=== PATIENT | female | born 1935 | race Two or more races ===

== ENCOUNTER → 2017-07-24 | Outpatient (CLI) | payer OTHER | LOC: CIMAGING 13:14 | PROVIDERS: ATTEND Internal Medicine | DX: M25.551 Pain in right hip (principal); M51.36 Other intervertebral disc degeneration, lumbar region; M51.35 Other intervertebral disc degeneration, thoracolumbar region | CPT/HCPCS: 72100-PO; 73502-PO ==

== ENCOUNTER → 2018-01-11 | Outpatient (CLI) | payer OTHER | LOC: FIMAGING 18:56 | PROVIDERS: ATTEND Internal Medicine | DX: M51.35 Other intervertebral disc degeneration, thoracolumbar region (principal); M51.36 Other intervertebral disc degeneration, lumbar region; M48.061 Spinal stenosis, lumbar region without neurogenic claudication; Q76.6 Other congenital malformations of ribs ==

== ENCOUNTER → 2018-08-29 | Outpatient (CLI) | payer OTHER | LOC: BHFA 11:00 | PROVIDERS: ATTEND Internal Medicine Cardiovascular Disease | DX: R07.9 Chest pain, unspecified (principal); R94.31 Abnormal electrocardiogram [ECG] [EKG]; R94.39 Abnormal result of other cardiovascular function study ==

== ENCOUNTER → 2018-09-06 | Outpatient (CLI) | payer OTHER | LOC: BHFA 13:00 | PROVIDERS: ATTEND Internal Medicine Cardiovascular Disease | DX: R94.39 Abnormal result of other cardiovascular function study (principal) | CPT/HCPCS: 78452; 93017; A9500; J2785 ==

== ENCOUNTER 2018-10-03 10:36 | Inpatient (IN) | payer OTHER ==
[2018-10-03] MEDS ORDERED: FAMOTIDINE 20 MG TAB PO ONE (10:37)
[2018-10-03] MEDS ORDERED: ASPIRIN EC 325 MG TAB PO ONE ×2 (10:37→12:46)
[2018-10-03] MEDS ORDERED: DIAZEPAM 5 MG TAB PO ONE (10:37)
[2018-10-03] MEDS ORDERED: NS 1,000 ML IV ONE (10:37)
[2018-10-03] MEDS ORDERED: diphenhydrAMINE 25 MG CAP PO ONE ×2 (10:37→12:46)
[2018-10-03] MEDS ORDERED: LIDOCAINE 1% 300 MG/30 ML SDV ONE (10:52)
[2018-10-03] MEDS ORDERED: MIDAZOLAM 2 MG/2 ML VIAL ONE ×2 (10:52)
[2018-10-03] MEDS ORDERED: fentaNYL 100 MCG/2 ML INJ ONE (10:52)
[2018-10-03] MEDS ORDERED: IOHEXOL 350mgI/ML (OMNIPAQUE) 150 ML BTL IV ONE ×2 (10:53)
--- NOTE | 2018-10-03 11:09 | PDPROPOC ---
Sedation Plan of Care Sedation Plan of Care: mental status noted, patient educated of risks, benefits , alternatives, patient can tolerate sedation ASA Classification: ASA 2 Planned drugs: fentanyl, midazolam Mallampati Score: Class 2 Mallampati Reference Image: Patient passed 3-3-2 rule?: Yes
--- NOTE | 2018-10-03 11:14 | PDHPUP ---
History & Physical Update H&P update statement: This history and physical update is based on an assessment of the patient which was completed after admission or registration (within 24 hours), but prior to the surgery/procedure.Ana M is pleasant 83F with complaints of exertional chest pain, epigastric discomfort with radiation to her back coupled with sob and torres. She could not complete Jermaine protocol, excercising for 3 min and 20 seconds , stopped due to fatigue. Lexiscan nuclear stress demonstrated a large, severe intensiity fixed with partial reversibility Anterior septal defect c/w infarct with isa infarct ischemia, TID and reduced EF of 46%. She presents today for [facility]. Her daughter serves as a clay dry press mixer operator. I have asked if she would like an spanish interpreter/translator. She said no and was comfortable with my explanations via her daughter. H&P update: H&P reviewed & patient examined, no change in patient's condition since H&P completed
[2018-10-03 11:24] LABS: PLATELET COUNT 168 10^3/uL (150-400)
[2018-10-03 11:33] LABS: INR 1.01 (0.83-1.16); PROTIME(PATIENT) 13.5 SEC (12.0-15.0)
--- NOTE | 2018-10-03 11:45 | CPEKG ---
Test Reason : OPEN Blood Pressure : / mmHG Vent. Rate : 078 BPM Atrial Rate : 079 BPM P-R Int : 254 ms QRS Dur : 093 ms QT Int : 398 ms P-R-T Axes : 063 012 107 degrees QTc Int : 454 ms Sinus rhythm Prolonged CT interval Probable LVH with secondary repol abnrm Confirmed by Giovany Manuel ([id number]) on 10/03/2018 11:44:25 AM Referred By: Franky Pantoja Confirmed By:Giovany Manuel
[2018-10-03] MEDS ORDERED: FAMOTIDINE 20 MG TAB ONE (12:46)
[2018-10-03] MEDS ORDERED: DIAZEPAM 5 MG TAB ONE (12:47)
[2018-10-03] MEDS ORDERED: hydrALAZINE 20 MG/ML VIAL ONE (13:18)
[2018-10-03] MEDS ORDERED: ATROPINE SULFATE 1 MG/10 ML SYR IVP PRN (13:56)
[2018-10-03] MEDS ORDERED: NITROGLYCERIN 0.4 MG BTL SL PRN (13:56)
[2018-10-03] MEDS ORDERED: OXYCODONE/APAP 5/325 TAB PO PRN (13:56)
[2018-10-04 04:37] LABS: PLATELET COUNT 157 10^3/uL (150-400)
[2018-10-04] MEDS: ATORVASTATIN CALCIUM 20 MG TAB PO SCH (09:29)
[2018-10-04] MEDS: METOPROLOL SUCCINATE XR 50 MG TAB PO SCH (09:29)
[2018-10-04] MEDS: GABAPENTIN 100 MG CAP PO SCH (09:29)
--- NOTE | 2018-10-04 10:08 | PDCARPN ---
Cardiology Progress Note Chief Complaint: CP Assessment/Plan: Assessment: CP 3-vessel CAD by cath on 10/03 Plan: 10/04/18 10:[address] Gannon to see patient today Continue medical therapy Subjective: stable Reviewed/Discussed With: multidisciplinary team Time Spent with Patient: greater than 25 minutes Time Spent with Patient: Greater than 25 minutes spent on this patients care, greater than 50% of time spent counseling, educating, and coordinating care regarding the above mentioned plan. Objective: Vital Signs (8 Hrs) Temp Pulse Pulse Pulse Pulse Resp BP 10/04/18 09:29 73 188/97 H 10/04/18 07:15 36.5 C 64 15 161/82 H 10/04/18 06:00 63 64 64 BP BP BP Pulse Ox 10/04/18 09:29 10/04/18 07:15 90 L 10/04/18 06:00 164/91 H 143/80 H 170/83 H Intake/Output (24 Hrs) 10/03/18 10/04/18 10/05/18 05:59 05:59 05:59 Intake Total 250 Balance 250 Intake: Oral (ml) 250 Other: Weight 64.41 kg 63.957 kg Number of Voids Toilet 2 Result Diagrams: 10/04/18 04:00 10/04/18 04:00 - Physical Exam Constitutional: no apparent distress Eyes: PERRL Ears, Nose, Mouth, Throat: moist mucous membranes Cardiovascular: regular rate and rhythm Peripheral Pulses: 1+: femoral (R), femoral (L) Respiratory: clear to auscultate bilat Gastrointestinal: normoactive bowel sounds Genitourinary: no suprapubic tenderness Skin: no rashes Musculoskeletal: no muscular tenderness Neurologic: AAOx3 Psychiatric: cooperative ICD10 Worksheet Patient Problems: Problems Problem Status Onset CAD (coronary artery disease) Acute - ICD10 Problem Qualifiers (1) CAD (coronary artery disease) Qualifiers: Coronary Disease-Associated Artery/Lesion type: [place] artery [place] vs. transplanted heart: [place] heart Associated angina: with stable angina Qualified Code(s): I25.118 - Atherosclerotic heart disease of [place] coronary artery with other forms of angina pectoris
[2018-10-04] MEDS ORDERED: hydrALAZINE 20 MG/ML VIAL IVP PRN (10:09)
--- NOTE | 2018-10-04 10:59 | PDMN ---
Medical Necessity Medical necessity: Pt meets IP criteria as of 10/03/2018 per and MCG M-40 ( Angina); est los > 2 mn for ongoing tx and management of exertional CP, KOTHARI, and epigastric discomfort. Nuclear stress test demonstrated ischemia and pt had L heart cath, plan for CABG.
--- NOTE | 2018-10-04 14:19 | ASMTCMCOM ---
CM Note CM Note Notes: 10/04/2018 Case Management Note Pt admitted for CAD, considering CABG. Met w/pt, daughter Sofie Conte [phone] and granddaughter Alexandra [phone]. Pt is polishing speaking only, used chick room supervisor services provided by [facility]. Used interpreting ipad for discussion. Pt lives with her daughter Sofie. She has not in the past used any home care services are staying in a SNF rehab. There are no therapy evals ordered at this time. Pt PCP is Dr. Jose Middleton in [place]. Case Management d/c poc: to be determined. Case management to follow. Date Signed: 10/04/2018 02:18 PM Electronically Signed By:Laura Deleon RN
[2018-10-04] MEDS ORDERED: IOHEXOL 300 mgI/ML (OMNIPAQUE) 150 ML BTL IV ONE (17:10)
--- NOTE | 2018-10-04 20:01 | CPEKG ---
Test Reason : OPEN Blood Pressure : / mmHG Vent. Rate : 067 BPM Atrial Rate : 066 BPM P-R Int : 222 ms QRS Dur : 091 ms QT Int : 428 ms P-R-T Axes : 040 007 102 degrees QTc Int : 452 ms Sinus rhythm Prolonged IL interval Left atrial enlargement LVH with secondary repolarization abnormality Confirmed by Giovany Manuel ([id number]) on 10/04/2018 8:00:40 PM Referred By: Franky Pantoja Confirmed By:Giovany Manuel
[2018-10-04] MEDS ORDERED: CHLORHEXIDINE GLUC HIBICLENS 118 ML BTL TP SCH (21:00)
[2018-10-05] MEDS ORDERED: NS 1,000 ML IV ONE (06:00)
[2018-10-05] MEDS ORDERED: INSULIN REGULAR HUMAN 100 UNIT in NS 100 ML IV ONE (06:00)
[2018-10-05] MEDS ORDERED: PHENYLEPHRINE HCL 50 MG in NS 250 ML IV ONE (06:00)
[2018-10-05] MEDS ORDERED: ceFAZolin 2 GM/DEXTROSE 100 ML IV ONE (06:00)
[2018-10-05] MEDS ORDERED: CARDIOPLEGIC SOLUTION 1,052.8 ML PF ONE (06:00)
[2018-10-05] MEDS ORDERED: CITRATE DEXTROSE SOLN 500 ML BAG MISC ONE (06:00)
[2018-10-05] MEDS ORDERED: MUPIROCIN 2% 22 GM OINT NS ONE (06:00)
[2018-10-05] MEDS ORDERED: LIDOCAINE 1% 2 ML INJ ID PRN (06:00)
[2018-10-05] MEDS ORDERED: niCARdipine/NACL 200 ML IV ONE (06:00)
[2018-10-05] MEDS ORDERED: NOREPINEPHRINE BITARTRATE 16 MG in NS 250 ML IV ONE (06:00)
[2018-10-05] MEDS ORDERED: VERAPAMIL 5 MG, NITROGLYCERIN 2.5 MG, HEPARIN 500 UNIT, SODIUM BICARBONATE 0.2 MEQ in L... MISC ONE (06:00)
[2018-10-05] MEDS ORDERED: MANNITOL 25% 12.5 GM/50 ML VIAL IVP ONE (06:00)
[2018-10-05] MEDS ORDERED: AMINOCAPROIC ACID 5 GM/20 ML VIAL IV ONE (06:00)
[2018-10-05] MEDS ORDERED: PAPAVERINE HCL 60 MG in NS 100 ML IV ONE (06:00)
[2018-10-05] MEDS ORDERED: AMINOCAPROIC ACID 5 GM/20 ML VIAL ONE ×2 (06:30→06:32)
[2018-10-05] MEDS ORDERED: NA BICARBONATE 50 MEQ/50 ML VIAL ONE (06:30)
[2018-10-05] MEDS ORDERED: PROTAMINE SULFATE 50 MG/5 ML VIAL IVP ONE (06:30)
[2018-10-05] MEDS ORDERED: MILRINONE/DEXTROSE/100 ML BAG IV ONE (06:30)
[2018-10-05] MEDS ORDERED: CALCIUM CHLORIDE 1 GM/10 ML INJ ONE ×2 (06:30→06:32)
[2018-10-05] MEDS ORDERED: AMIODARONE HCL 150 MG/3 ML VIAL ONE ×2 (06:31→06:32)
[2018-10-05] MEDS ORDERED: DOPamine/DEXTROSE 400 MG/250 ML BAG IV ONE (06:31)
[2018-10-05] MEDS ORDERED: SODIUM BICARBONATE 50 MEQ/50 ML SYR ONE (06:31)
[2018-10-05] MEDS ORDERED: ADENOSINE 6 MG/2 ML VIAL ONE (06:31)
[2018-10-05] MEDS ORDERED: HEPARIN 10,000 UNIT/10 ML MDV (1,000 UNIT/ML) ONE ×5 (06:31→12:31)
[2018-10-05] MEDS ORDERED: niCARdipine/NACL/200 ML BAG IV ONE (06:31)
[2018-10-05] MEDS ORDERED: ceFAZolin 1 GM VIAL ONE ×3 (06:31→12:31)
[2018-10-05] MEDS ORDERED: NITROGLYCERIN/D5W 50 MG/250 ML BOTTLE IV ONE (06:31)
[2018-10-05] MEDS ORDERED: ALBUMIN 5% 250 ML BOTTLE IV ONE ×2 (06:32→13:54)
[2018-10-05] MEDS ORDERED: CITRATE DEXTROSE SOLN 500 ML BAG ONE (06:32)
[2018-10-05] MEDS ORDERED: LIDOCAINE 2% 100 MG/5 ML SYR ONE (06:32)
[2018-10-05] MEDS ORDERED: MAGNESIUM SULFATE 1 GM/2 ML VIAL ONE (06:33)
[2018-10-05] MEDS ORDERED: methylPREDNISolone SOD SUCC 1 GM/8 ML VIAL ONE (06:33)
--- NOTE | 2018-10-05 07:19 | PDCARPN ---
Cardiology Progress Note Chief Complaint: CP Assessment/Plan: Assessment: CP 3-vessel CAD by cath on 10/03 Plan: 10/04/18 10:[address] Gannon to see patient today Continue medical therapy 10/05/18 07:[address] showed no mass Patient scheduled for CABG today further recs per CTS Subjective: Stable Reviewed/Discussed With: multidisciplinary team Time Spent with Patient: greater than 25 minutes Time Spent with Patient: Greater than 25 minutes spent on this patients care, greater than 50% of time spent counseling, educating, and coordinating care regarding the above mentioned plan. Objective: Vital Signs (8 Hrs) Temp Pulse Resp BP Pulse Ox 10/05/18 04:00 36.7 C 61 18 168/90 H 96 10/04/18 23:34 36.6 C 66 19 163/72 H 93 Intake/Output (24 Hrs) 10/04/18 10/05/18 10/06/18 05:59 05:59 05:59 Intake Total 250 550 Balance 250 550 Intake: Oral (ml) 250 550 Other: Weight 64.41 kg 64.4 kg Number of Voids Toilet 2 2 Result Diagrams: 10/04/18 04:00 10/04/18 04:00 - Physical Exam Constitutional: no apparent distress Ears, Nose, Mouth, Throat: moist mucous membranes Cardiovascular: regular rate and rhythm Peripheral Pulses: 1+: femoral (R), femoral (L) Respiratory: clear to auscultate bilat Gastrointestinal: normoactive bowel sounds Genitourinary: no suprapubic tenderness Skin: no rashes Musculoskeletal: no muscular tenderness Neurologic: AAOx3 Psychiatric: cooperative ICD10 Worksheet Patient Problems: Problems Problem Status Onset CAD (coronary artery disease) Acute - ICD10 Problem Qualifiers (1) CAD (coronary artery disease) Qualifiers: Coronary Disease-Associated Artery/Lesion type: [place] artery [place] vs. transplanted heart: [place] heart Associated angina: with stable angina Qualified Code(s): I25.118 - Atherosclerotic heart disease of [place] coronary artery with other forms of angina pectoris
--- NOTE | 2018-10-05 08:00 | CPIP ---
[f rep st] INVASIVE CARDIAC PROCEDURE DATE OF PROCEDURE: 10/03/2018 PROCEDURE: Cardiac catheterization. INDICATION FOR PROCEDURE: Patient with complaints of exertional chest tightness and pressure, shortn ess of breath, dyspnea on exertion coupled with markedly abnormal nuclear stress test with evidence o f anterior septal infarct with isa-infarct ischemia, transient ischemic dilatation and reduced eject ion fraction. The patient had been seen in my office in August 2018 to review the results of stress test. I had r ecommended angiogram at that time. She elected to consider. I provided her with information regardi ng left heart catheterization, and ultimately she decided to pursue. The patient is [place]-speaking only. My initial consultation with her was with her daughter, who tra nslates for her. Risks and benefits of cardiac catheterization were discussed in detail with the patient in the presen ce of her daughter, who translated. All questions were addressed prior to pursuing left heart cathet erization. DESCRIPTION OF PROCEDURE: After informed consent was obtained for left heart catheterization and pos sible percutaneous coronary intervention, the patient was brought to the cardiac catheterization lab, where she was prepped and draped in sterile fashion. Using 1% lidocaine, the right groin was anesth etized. Using the micropuncture and modified Seldinger technique, a 6-[place] catheter was placed in the right common femoral artery without complications. JL4 catheter was used to take images of the l eft coronary anatomy in multiple projections. JL4 catheter was exchanged over a guidewire for a JR4 catheter. JR4 catheter was used to take images of the right coronary artery in multiple projections. JR4 catheter was exchanged over a guidewire for an angled pigtail catheter. Angled pigtail cathete r was used to cross the aortic valve. Left ventriculogram was performed. LVEDP was assessed. Aorti c valve gradient was assessed on pullback. Angled pigtail catheter was then removed over a guidewire without complications. Angiography of the right common femoral artery sheath placement was obtained , demonstrating appropriate placement below the inguinal ligament and above the bifurcation over the femoral head. FINDINGS: 1. Left main demonstrates 20% proximal stenosis. It is normal size and caliber. It bifurcates into a left anterior descending and circumflex coronary artery. 2. Left anterior descending artery is heavily diseased. There is an 80% narrowing in the proximal s egment, 90% narrowing in the mid segment. There is a moderate caliber 1st diagonal branch with 90% p roximal stenosis as well. 3. Circumflex vessel is a small nondominant vessel. There is 70% proximal stenosis and mild luminal irregularities through the remainder of the circumflex vessel. 4. The right coronary artery is a large caliber, dominant vessel. There is 30% proximal stenosis an d 80% mid stenosis. The RCA bifurcates into PDA and PLV branch. There is evidence of [id number] collaterals communicating with the LAD. HEMODYNAMICS: There was evidence of severe global hypokinesis with a LVEF of 30%. Aortic valve grad ient none. LVEDP 24 mmHg. CONCLUSION: 1. Severe 3-vessel coronary artery disease. 2. Ischemic cardiomyopathy. Elevated left ventricular end-diastolic pressure at 24 mmHg. I reviewed the findings of the left heart catheterization in detail with my surgical colleague, Dr. Nguyễn Bryant. Dr. Bryant and I explained the findings in detail to the patient's daughter. I explai roxie I would recommend a coronary artery bypass graft surgery. Procedure was explained in detail by yayo pollockelf as well as Dr. Bryant. A detailed discussion was then had with the patient herself as well as her daughter. My recommendati ons were explained in detail. I have answered all of her questions. She was initially reluctant to stay for bypass surgery but ultimately agreed. Her hesitancy was due to surprise that she had any si gnificant coronary disease and did not anticipate that she would require surgical intervention. Mike conner, after detailed explanation of what was involved, the significance of the coronary disease found on her left heart catheterization coupled with a reduced ejection fraction, she was agreeable for [facility] admission and plan for coronary artery bypass graft surgery on Friday, October 05, 2018 . /[id number]/MODL
[2018-10-05] MEDS: ATORVASTATIN CALCIUM 20 MG TAB PO SCH (08:24)
[2018-10-05] MEDS: GABAPENTIN 100 MG CAP PO SCH (08:24)
[2018-10-05] MEDS: METOPROLOL SUCCINATE XR 50 MG TAB PO SCH (08:24)
[2018-10-05] MEDS ORDERED: PAPAVERINE HCL 60 MG/2 ML SDV ONE (09:02)
[2018-10-05] MEDS ORDERED: VERAPAMIL 5 MG/2 ML VIAL ONE (09:02)
--- NOTE | 2018-10-05 09:26 | PDANEPAE ---
ANE History of Present Illness CAD ANE Past Medical History - Cardiovascular History Hx Hypertension: Yes Hx Arrhythmias: No Hx Chest Pain: No Hx Coronary Artery / Peripheral Vascular Disease: Yes Hx CHF / Valvular Disease: Yes Hx Palpitations: No Cardiovascular History Comment: EF=45% - Pulmonary History Hx COPD: No Hx Asthma/Reactive Airway Disease: No Hx Recent Upper Respiratory Infection: No Hx Oxygen in Use at Home: Yes O2 in Use at Home (L/minute): 2 Hx Sleep Apnea: No Sleep Apnea Screening Result - Last Documented: Positive - Endocrine History Hx Diabetes: No Hypothyroid: No Hyperthyroid: No Obesity: no - Renal History Hx Renal Disorders: No - Liver History Hx Hepatic Disorders: No - Neurological & Psychiatric Hx Hx Neurological and Psychiatric Disorders: No - Cancer History Hx Cancer: No - Congenital Disorder History Hx Congenital Disorders: No - GI History GERD: mild GERD Comment: GERD Hx Gastrointestinal Disorders: Yes - Chronic Pain History Chronic Pain: Yes (arthritis) ANE Review of Systems Review of systems is: negative Review of Systems: - Exercise capacity METS (RN): 4 METS ANE Patient History - Allergies Allergies/Adverse Reactions: No Known Allergies Allergy (Verified 10/03/18 08:49) - Home Medications Home medications: home medication list seen and reviewed Home Medications: Diclofenac Sodium [Voltaren 50 MG (*)] 50 mg PO BID 10/03/18 [Last Taken 21:00] Gabapentin [Neurontin 100 MG (*)] 100 mg PO DAILY 10/03/18 [Last Taken 10/02/18 06:00] Gabapentin [Neurontin 100 MG (*)] 200 mg PO HS 10/03/18 [Last Taken 10/02/18 21: 00] Metoprolol Succinate Xr [Toprol Xl 50 mg (*)] 50 mg PO DAILY 10/03/18 [Last Taken 10/02/18 21:00] Omeprazole 20 mg PO DAILY 10/03/18 [Last Taken Unknown] traMADol [Ultram 50 mg (*)] 50 mg PO Q6HRS PRN 10/03/18 [Last Taken 10/02/18 21: 00] - NPO status NPO Status: no food or drink >8 hours NPO Since - Liquids (Date): 10/05/18 NPO Since - Liquids (Time): 00:00 NPO Since - Solids (Date): 10/05/18 NPO Since - Solids (Time): 00:00 - Anes Hx Anes Hx: no prior problems - Smoking Hx Smoking Status: Never smoked Marijuana use: No - Alcohol Use Alcohol Use: None - Family Anes Hx Family Anes Hx: none ANE Labs/Vital Signs - Labs Result Diagrams: 10/04/18 04:00 10/04/18 04:00 - Vital Signs Blood Pressure: 163/88 Heart Rate: 67 Respiratory Rate: 16 O2 Sat (%): 94 Height: 165.1 cm Weight: 64.4 kg ANE Physical Exam - Airway Neck exam: FROM Mallampati Score: Class 2 Mouth exam: normal dental/mouth exam - Pulmonary Pulmonary: no respiratory distress, clear to auscultation - Cardiovascular Cardiovascular: regular rate and rhythym, no murmur, rub, or gallop - ASA Status ASA Status: IV ANE Anesthesia Plan Anesthesia Plan: general endotracheal anesthesia Lines/Monitors: arterial line, central line, CHARLES
[2018-10-05] MEDS ORDERED: LR 1,000 ML IV ONE (09:49)
[2018-10-05] MEDS ORDERED: CEFAZOLIN 2 GM/DEXTROSE/100 ML BAG IV ONE (09:51)
[2018-10-05] MEDS ORDERED: MIDAZOLAM 2 MG/2 ML VIAL IVP ONE (10:06)
[2018-10-05] MEDS ORDERED: LIDOCAINE 2% 5 ML SDV ONE (10:11)
[2018-10-05] MEDS ORDERED: ROCURONIUM 100 MG/10 ML VIAL ONE (10:11)
[2018-10-05] MEDS ORDERED: PROPOFOL 200 MG/20 ML VIAL ONE (10:11)
[2018-10-05] MEDS ORDERED: fentaNYL 250 MCG/5 ML INJ ONE (10:11)
--- NOTE | 2018-10-05 10:34 | PDHPUP ---
History & Physical Update H&P update statement: This history and physical update is based on an assessment of the patient which was completed after admission or registration (within 24 hours), but prior to the surgery/procedure. H&P update: H&P reviewed & patient examined, changes noted (CUS neg for hemodynamically significant carotid disease, CT with chronic interstitial lung changes of lingula and rt mid lung)
[2018-10-05] MEDS ORDERED: MINERAL OIL 10 ML VIAL ONE (11:21)
[2018-10-05] MEDS ORDERED: ISOFLURANE 100 ML BOTTLE IH ONE (11:36)
[2018-10-05] MEDS ORDERED: PHENYLEPHRINE HCL 100 MCG/ML SYR ONE (12:15)
[2018-10-05] MEDS ORDERED: fentaNYL 100 MCG/2 ML INJ ONE (13:12)
[2018-10-05] MEDS ORDERED: SUGAMMADEX SODIUM 200 MG/2 ML VIAL IVP ONE (14:13)
[2018-10-05] MEDS ORDERED: POTASSIUM Cl (KCl) 50 ML IV PRN (14:26)
[2018-10-05] MEDS ORDERED: ONDANSETRON DISINTEGRATING 4 MG TAB PO PRN (14:26)
[2018-10-05] MEDS ORDERED: METOCLOPRAMIDE 10 MG/2 ML VIAL IVP PRN (14:26)
[2018-10-05] MEDS ORDERED: MAGNESIUM HYDROXIDE 30 ML UDCUP PO PRN (14:26)
[2018-10-05] MEDS ORDERED: CEPACOL LOZENGE PO PRN (14:26)
[2018-10-05] MEDS ORDERED: BISACODYL 10 MG SUPP PR PRN (14:26)
[2018-10-05] MEDS ORDERED: MEPERIDINE 25 MG/0.5 ML AMP IVP PRN (14:26)
[2018-10-05] MEDS ORDERED: ACETAMINOPHEN 650 MG SUPP PR PRN (14:26)
[2018-10-05] MEDS ORDERED: niCARdipine/NACL 200 ML IV PRN (14:26)
[2018-10-05] MEDS ORDERED: D50W 25 GM/50 ML SYR IVP PRN (14:26)
[2018-10-05] MEDS ORDERED: PANTOPRAZOLE SODIUM 40 MG VIAL IVP ONE (14:26)
[2018-10-05] MEDS ORDERED: LACTULOSE 20 GM/30 ML UDCUP PO PRN (14:26)
[2018-10-05] MEDS ORDERED: ALBUMIN 5% 250 ML IV PRN (14:26)
[2018-10-05] MEDS ORDERED: POLYETHYLENE GLYCOL 3350 17 GM PKT PO PRN (14:26)
[2018-10-05] MEDS ORDERED: SODIUM CL NASAL 45 ML BTL EACHNARE PRN (14:26)
[2018-10-05] MEDS ORDERED: INSULIN REGULAR HUMAN 100 UNIT in NS 100 ML IV SCH (14:30)
[2018-10-05] MEDS ORDERED: NALOXONE HCL 0.4 MG/ML INJ IVP PRN (14:53)
--- NOTE | 2018-10-05 14:54 | POSTANESTH ---
Post Anesthetic Evaluation Cardiovascular Status: Normal, Stable Respiratory Status: Normal, Stable Level of Consciousness/Mental Status: Can Participate in Eval Pain Control: Adequate, Prn Tx Ordered Nausea/Vomiting Control: Adequate, Prn Tx Ordered Complications Possibly Related to Anesthesia: None Noted
[2018-10-05] MEDS: fentaNYL 100 MCG/2 ML INJ IVP PRN ×4 (15:16→22:34)
[2018-10-05] MEDS: NS 1,000 ML IV SCH (15:18)
[2018-10-05] MEDS ORDERED: DEXMEDETOMIDINE HCL 400 MCG in NS 100 ML IV SCH (16:00)
[2018-10-05] MEDS: ceFAZolin 2 GM/DEXTROSE 100 ML IV SCH (18:40)
[2018-10-05] MEDS ORDERED: KETOROLAC 15 MG/1 ML SDV IVP ONE (19:15)
[2018-10-05] MEDS: MUPIROCIN 2% 22 GM OINT NS SCH (21:15)
[2018-10-06] MEDS: fentaNYL 100 MCG/2 ML INJ IVP PRN (02:31)
[2018-10-06] MEDS: ceFAZolin 2 GM/DEXTROSE 100 ML IV SCH ×3 (02:34→21:21)
[2018-10-06] MEDS: NS 1,000 ML IV SCH (02:36)
[2018-10-06 05:14] LABS: PLATELET COUNT 111 10^3/uL (150-400)
[2018-10-06] MEDS: HEPARIN 5,000 UNIT/0.5 ML INJ SC SCH ×3 (05:41→21:18)
--- NOTE | 2018-10-06 07:52 | SOAPPROG ---
SOAP Progress Note Assessment/Plan: Assessment: POD#1 CABG x 3 (PATEL-LAD, SV-D1, SV-PDA), EVH bilat thighs, prophylactic AtriClip ligation left atrial appendage Sx severe CAD - Nondominant LCX too small to graft. Secondary prevention with ASA, BB and statin when appropriate. ISCM - Preop LVEF 30-40%. Improved systolic fx post revascularization. Extubated in the OR. Hemodynamically stable early postop course without inotropic or pressor support. No atrial dysrhythmias. No sig volume overload. Exam c/w pericarditis. Consider colchicine. Staggered intro of heart failure meds as tolerated. Acute expected blood loss anemia - Stable. No transfusions needed. VTE prophylaxis w SCDs and subq hep. Pulmonary fibrosis - Stable. No sig post-extubation suppl O2 requirement. Strict NPO pending clearance for orals by PRODUCT APPLICATIONS SCIENTIST. Plan: Routine POD#1 orders re lines, drains, wires, and mobility. Diet per PRODUCT APPLICATIONS SCIENTIST. Gentle diuresis and follow K. Likely start metoprolol tartrate tonight. Probable tx to PCU later today. 10/06/18 07:48 Subjective: c/o back pain and would like tramadol. no nausea. Objective: Vital Signs Temp Pulse Resp BP Pulse Ox 37.1 C 70 20 133/55 H 98 10/06/18 04:00 10/06/18 07:00 10/06/18 07:00 10/06/18 07:00 10/06/18 07:00 Laboratory Results 10/06/18 05:06 10/06/18 05:06 10/05/18 10/06/18 10/07/18 05:59 05:59 05:59 Intake Total 550 1699 Output Total 1475 Balance 550 224 PT 13.5 SEC (12.0-15.0) 10/03/18 11:15 INR 1.01 (0.83-1.16) 10/03/18 11:15 No gtts. MAPs > 70 overnoc. Rhythm sinus w occ PVCs, STs sl upsloped, short run of NSVT early this am. Excellent sats on 2 lpm O2. Min CTOP. Balanced I/Os. CVP 10 OOB. CXR -> no PTX, mild pulm vasc congestion, abundant air in stomach. Labs ok. Sl elev K without other imbalance. Physical Exam - Physical Exam General Appearance: alert, mild distress (pain) Respiratory: lungs clear (grossly anteriorly), other (Blakes x 2 y-d to pleurovac, serosang drainage, no air leak) Cardiac/Chest: regular rate, rhythm, friction rub, other (Sternotomy CDI. Vwires intact. ) Abdomen: non-tender, soft, other (hypoactive BS) Skin: warm/dry, other (No visible edema, LLE venotomies CDI) ICD10 Worksheet Patient Problems: Problems Problem Status Onset Acute blood loss anemia Acute CAD (coronary artery disease) Acute Carotid artery disease Acute Dyslipidemia Acute Elevated left ventricular end-diastolic pressure (LVEDP) Acute Ischemic cardiomyopathy Acute S/P CABG x 3 Acute ~10/05/18 Chronic pain Chronic HTN (hypertension), benign Chronic Language barrier to communication Chronic Pulmonary fibrosis Chronic
[2018-10-06] MEDS ORDERED: FUROSEMIDE 20 MG/2 ML VIAL IVP ONE (08:30)
--- NOTE | 2018-10-06 08:43 | GOP ---
[f rep st] OPERATIVE REPORT DATE OF OPERATION: 10/05/2018 SURGEON: Jagdeep Gannon DO VISCOSE CELLAR CHARGE HAND: Joe. ANESTHESIOLOGIST: Lena Gomes MD PREOPERATIVE DIAGNOSIS: Unstable angina pectoris, severe 3-vessel disease. POSTOPERATIVE DIAGNOSIS: Unstable angina pectoris, severe 3-vessel disease. PROCEDURE PERFORMED: 1. Coronary bypass grafting x3 with left internal mammary artery to the left anterior descending, saphenous vein graft to the diagonal and saphenous vein graft to the posterior descending artery. 2. Ligation of left atrial appendage with 35 mm Atriclip. 3. Endoscopic vein harvest of both thighs. FINDINGS: DESCRIPTION OF PROCEDURE: Patient was consented for surgery, brought to the operating room, intubated, monitoring lines were placed. She was prepped and draped in sterile classical manner. Sternotomy was performed after a time-out was completed. Mammary was harvested it was a 2.2 mm vessel with good flow. Endoscopic vein was harvested by RACHEL Olmstead, who first assisted throughout the procedure. It was good quality vein from both thighs. She was heparinized , cannulated, bypass was begun. Cardioplegic arrest was obtained with antegrade cardioplegia and topical hypothermia utilizing [place] solution. All distal and proximal grafting were performed with a cross-clamp on. The LAD was a good quality 2.2 mm vessel. The diagonal was a 2.4 mm vessel. The circumflex was a small vessel and for that reason was not grafted, measuring approximately 1 mm. The PDA with a 2.3 mm vessel. Aorta was without thickening or calcification. Ventricular function was moderately impaired. A 35 mm Atriclip was placed across the base of the left atrial appendage and the atrial appendage was decompressed. Cross-clamp was removed with suction on the ascending aortic vent. Spontaneous cardiac activity was noted to resume. The patient was rewarmed, weaned from bypass. Heparin was reversed with protamine. Cannula was removed and oversewn. Two ventricular pacing wires, 1 left pleural and 1 mediastinal. Drain was placed. Chest was closed in standard fashion. Patient was returned to ICU in stable condition. /[id number]/MODL MTDD
[2018-10-06] MEDS: ASPIRIN 81 MG CHEWABLE TAB PO SCH (11:43)
[2018-10-06] MEDS: traMADol 50 MG TAB PO PRN ×2 (11:43→17:41)
[2018-10-06] MEDS: GABAPENTIN 100 MG CAP PO SCH ×2 (11:43→21:18)
[2018-10-06] MEDS: PANTOPRAZOLE SODIUM 40 MG TAB PO SCH (11:43)
[2018-10-06] MEDS: MUPIROCIN 2% 22 GM OINT NS SCH ×2 (11:46→21:33)
[2018-10-06] MEDS ORDERED: KETOROLAC 15 MG/1 ML SDV IVP ONE (12:00)
[2018-10-06] MEDS: HYDROCODONE/APAP 5/325 TAB PO PRN ×2 (15:02→19:08)
[2018-10-06] MEDS ORDERED: AMIODARONE HCL 200 ML IV ONE (20:41)
[2018-10-06] MEDS ORDERED: AMIODARONE HCL 100 ML IV ONE (20:41)
[2018-10-06] MEDS ORDERED: ALBUMIN 5% 250 ML IV PRN (20:44)
[2018-10-06] MEDS ORDERED: METOPROLOL TARTRATE 25 MG TAB PO SCH (21:00)
[2018-10-06] MEDS: SENNOSIDES/DOCUSATE SODIUM TAB PO SCH (21:18)
[2018-10-06] MEDS: ONDANSETRON 4 MG/2 ML VIAL IVP PRN (21:44)
[2018-10-06] MEDS: ACETAMINOPHEN 325 MG TAB PO PRN (21:55)
[2018-10-07] MEDS: traMADol 50 MG TAB PO PRN ×3 (00:06→21:17)
[2018-10-07] MEDS: HYDROCODONE/APAP 5/325 TAB PO PRN ×3 (01:16→15:10)
[2018-10-07] MEDS ORDERED: AMIODARONE HCL 540 MG in D5W 300 ML IV ONE (03:00)
[2018-10-07] MEDS: ceFAZolin 2 GM/DEXTROSE 100 ML IV SCH (03:34)
[2018-10-07] MEDS: HEPARIN 5,000 UNIT/0.5 ML INJ SC SCH ×2 (05:35→16:44)
--- NOTE | 2018-10-07 08:27 | SOAPPROG ---
SOAP Progress Note Assessment/Plan: Assessment: POD#2 CABG x 3 (PATEL-LAD, SV-D1, SV-PDA), EVH bilat thighs, prophylactic AtriClip ligation left atrial appendage Sx severe CAD - Nondominant LCX too small to graft. Surveillance per cards. Secondary prevention with ASA, BB and statin when appropriate. ISCM - Preop LVEF 30-40%. Improved systolic fx post revascularization. Extubated in the OR. Hemodynamically stable early postop course without inotropic or pressor support. No sig volume overload. Exam c/w pericarditis. Consider colchicine. Staggered intro of heart failure meds as tolerated. Postoperative paroxysmal atrial fibrillation - Onset last night. VVR well tolerated. SR restored fairly promptly on amio. BB to be added as allowed by BP. [id number] score of 4. Antithrombotic prophylaxis if recurrent or persistent arrhythmia. Acute expected blood loss anemia - Stable. No transfusions needed. VTE prophylaxis w SCDs and SQ hep. Pulmonary fibrosis - Stable. No sig post-extubation suppl O2 requirement. Plan: Remove mediastinal chest tube. Consider removal pleural tube tomorrow. Transition amio to orals tomorrow. Metoprolol tartrate 12.5 mg BID w conservative hold parameters. Inc activity as tolerated. Dispo - Anticipate home without services in 2-3 days. 10/07/18 08:18 Subjective: Intermittent nausea and tube pain. Currently comfortable. Objective: Vital Signs Temp Pulse Resp BP Pulse Ox 37.0 C 69 19 113/57 L 96 10/07/18 07:40 10/07/18 07:40 10/07/18 07:40 10/07/18 07:40 10/07/18 07:40 Laboratory Results 10/06/18 05:06 10/07/18 03:43 10/06/18 10/07/18 10/08/18 05:59 05:59 05:59 Intake Total 1699 1225 Output Total 1475 1120 Balance 224 105 PT 13.5 SEC (12.0-15.0) 10/03/18 11:15 INR 1.01 (0.83-1.16) 10/03/18 11:15 AF w VVR ~ 8pm last noc. SR restored by 1 am. No hypotension but insufficient BP for BB. Stable 2 lpm O2 req. Balanced I/Os. CTOP nearing removal criteria. Renal fx remains normal. Physical Exam - Physical Exam General Appearance: alert, no apparent distress Respiratory: decreased breath sounds (bases), other (blakes x 2 to bulb suction , serosang drainage) Cardiac/Chest: regular rate, rhythm, friction rub, other (Sternotomy CDI. V wires intact.) Abdomen: normal bowel sounds, non-tender, soft Skin: warm/dry Extremities: swelling (trace), other (bilat thigh venots CDI) ICD10 Worksheet Patient Problems: Problems Problem Status Onset Acute blood loss anemia Acute CAD (coronary artery disease) Acute Carotid artery disease Acute Dyslipidemia Acute Elevated left ventricular end-diastolic pressure (LVEDP) Acute Ischemic cardiomyopathy Acute Postoperative atrial fibrillation Acute S/P CABG x 3 Acute ~10/05/18 Chronic pain Chronic HTN (hypertension), benign Chronic Language barrier to communication Chronic Pulmonary fibrosis Chronic
[2018-10-07] MEDS ORDERED: METOPROLOL TARTRATE 25 MG TAB PO SCH (09:00)
[2018-10-07] MEDS: PANTOPRAZOLE SODIUM 40 MG TAB PO SCH (09:33)
[2018-10-07] MEDS: ASPIRIN 81 MG CHEWABLE TAB PO SCH (09:34)
[2018-10-07] MEDS: GABAPENTIN 100 MG CAP PO SCH ×2 (09:34→21:17)
[2018-10-07] MEDS: SENNOSIDES/DOCUSATE SODIUM TAB PO SCH ×2 (09:34→21:17)
[2018-10-07] MEDS ORDERED: KETOROLAC 15 MG/1 ML SDV IVP ONE (17:30)
[2018-10-07] MEDS: MUPIROCIN 2% 22 GM OINT NS SCH (18:16)
[2018-10-07] MEDS: ONDANSETRON 4 MG/2 ML VIAL IVP PRN (20:53)
[2018-10-07] MEDS: ACETAMINOPHEN 325 MG TAB PO PRN (21:14)
[2018-10-07] MEDS: METOPROLOL TARTRATE 25 MG TAB PO SCH (21:15)
[2018-10-07] MEDS ORDERED: KETOROLAC 15 MG/1 ML SDV IVP PRN (23:55)
[2018-10-08] MEDS: ONDANSETRON 4 MG/2 ML VIAL IVP PRN (03:44)
[2018-10-08] MEDS: traMADol 50 MG TAB PO PRN ×2 (03:46→10:51)
[2018-10-08] MEDS: DICLOFENAC SODIUM 50 MG TAB PO SCH ×3 (03:46→20:04)
--- NOTE | 2018-10-08 07:12 | SOAPPROG ---
SOAP Progress Note Assessment/Plan: Assessment: POD#3 CABG x 3 (PATEL-LAD, SV-D1, SV-PDA), EVH bilat thighs, prophylactic AtriClip ligation left atrial appendage Sx severe CAD - Nondominant LCX too small to graft. Surveillance per cards. Secondary prevention with ASA, BB and statin when appropriate. ISCM - Preop LVEF 30-40%. Improved systolic fx post revascularization. Extubated in the OR. Hemodynamically stable early postop course without inotropic or pressor support. No sig volume overload. Exam c/w pericarditis. Consider colchicine. Staggered intro of heart failure meds as tolerated. Postoperative paroxysmal atrial fibrillation - Evening of POD#1. Relatively asx. SR restored within a few hours on amio. BB added and uptitrated as tolerated. [id number] score of 4. Antithrombotic prophylaxis if recurrent or persistent arrhythmia. Acute expected blood loss anemia - Stable. No transfusions needed. VTE prophylaxis w SCDs and SQ hep. Acute on chronic pain - Home control with gabapentin, tramadol and diclofenac. Postop attempt at multimodal analgesia limited by nausea on narcotics. Best relief obtained with intermittent toradol and diclofenac restarted to facilitate cardiac rehab. Pulmonary fibrosis - Stable. No sig post-extubation suppl O2 requirement. Plan: Remove Vwires and pleural tube. Cont Amio 200 mg daily. Cont Metoprolol tartrate 25 mg BID. Gentle diuresis. Elevate LEs at rest. Avoid prolonged dangling. Resume home NSAID. Wean O2. Cont inc activity as tolerated. Dispo - Anticipate home without services tomorrow. 10/08/18 07:08 Subjective: Feeling better. Happy to be getting tube out. Big smile when possibility of home tomorrow mentioned. Objective: Vital Signs Temp Pulse Resp BP Pulse Ox 36.7 C 66 16 164/77 H 98 10/07/18 23:15 10/08/18 03:53 10/08/18 03:53 10/08/18 03:53 10/08/18 03:53 Laboratory Results 10/08/18 03:55 10/08/18 03:55 10/07/18 10/08/18 10/09/18 05:59 05:59 05:59 Intake Total 1225 450 Output Total 1120 300 400 Balance 105 150 -400 PT 13.5 SEC (12.0-15.0) 10/03/18 11:15 INR 1.01 (0.83-1.16) 10/03/18 11:15 Holding SR. SBPs somewhat labile (likely reactive to pain). No sustained lows or highs. ? suppl O2 needs. Balanced I/Os. +1.6 kg overall. CTOP at removal criteria. Labs ok. - Pending Discharge Pending Discharge Within 48 Hours: Yes Pending Discharge Date: 10/10/18 Pending Discharge Time: 11:00 Physical Exam - Physical Exam General Appearance: alert, no apparent distress Respiratory: lungs clear (grossly), other (pleural tube to bulb suction, mostly serous drainage) Cardiac/Chest: regular rate, rhythm, friction rub, other (Sternotomy CDI. Vwire intact.) Abdomen: non-tender, soft Skin: normal color Extremities: swelling (1+ dependent), other (Bilat thigh venots CDI) ICD10 Worksheet Patient Problems: Problems Problem Status Onset Acute blood loss anemia Acute CAD (coronary artery disease) Acute Carotid artery disease Acute Dyslipidemia Acute Elevated left ventricular end-diastolic pressure (LVEDP) Acute Ischemic cardiomyopathy Acute Postoperative atrial fibrillation Acute S/P CABG x 3 Acute ~10/05/18 Chronic pain Chronic HTN (hypertension), benign Chronic Language barrier to communication Chronic Pulmonary fibrosis Chronic
[2018-10-08] MEDS ORDERED: AMIODARONE HCL 200 MG TAB PO SCH (09:00)
[2018-10-08] MEDS ORDERED: FUROSEMIDE 20 MG TAB PO SCH (09:00)
[2018-10-08] MEDS: ASPIRIN 81 MG CHEWABLE TAB PO SCH (09:02)
[2018-10-08] MEDS: PANTOPRAZOLE SODIUM 40 MG TAB PO SCH (09:02)
[2018-10-08] MEDS: GABAPENTIN 100 MG CAP PO SCH ×2 (09:02→20:05)
[2018-10-08] MEDS: METOPROLOL TARTRATE 25 MG TAB PO SCH ×2 (09:03→20:19)
[2018-10-08] MEDS: SENNOSIDES/DOCUSATE SODIUM TAB PO SCH ×2 (09:05→20:05)
[2018-10-08] MEDS: HYDROCODONE/APAP 5/325 TAB PO PRN (09:12)
[2018-10-08] MEDS: ATORVASTATIN CALCIUM 20 MG TAB PO SCH (09:12)
--- NOTE | 2018-10-08 12:57 | ASMTCMCOM ---
CM Note CM Note Notes: Per CT surgery, patient may discharge home tomorrow w no needs. She is POD #3 CABG x 3 and doing well. Weaning O2 and increasing activity. Case Management available if things change. Date Signed: 10/08/2018 12:57 PM Electronically Signed By:Piedad Mendez RN
--- NOTE | 2018-10-08 22:01 | CPEKG ---
Test Reason : OPEN Blood Pressure : / mmHG Vent. Rate : 091 BPM Atrial Rate : 091 BPM P-R Int : 239 ms QRS Dur : 083 ms QT Int : 344 ms P-R-T Axes : 085 030 159 degrees QTc Int : 424 ms Sinus rhythm Prolonged NC interval Probable left atrial enlargement Probable LVH with secondary repol abnrm ST elevation suggests acute pericarditis Confirmed by Ben Souza ([id number]) on 10/08/2018 10:00:46 PM Referred By: Jagdeep Gannon Confirmed By:Ben Souza
[2018-10-09] MEDS ORDERED: AMIODARONE HCL 100 ML IV ONE ×2 (07:00→09:10)
--- NOTE | 2018-10-09 07:39 | SOAPPROG ---
SOAP Progress Note Assessment/Plan: Assessment: POD#4 CABG x 3 (PATEL-LAD, SV-D1, SV-PDA), EVH bilat thighs, prophylactic AtriClip ligation left atrial appendage Sx severe CAD - Nondominant LCX too small to graft. Surveillance per cards. Secondary prevention with ASA, BB and statin. ISCM - Preop LVEF 30-40%. Improved systolic fx post revascularization. Extubated in the OR. Hemodynamically stable early postop course without inotropic or pressor support. No sig volume overload. Exam c/w pericarditis. Home NSAID resumed. Ck echo if anticoag needed. Staggered intro of heart failure meds as tolerated. Postoperative paroxysmal atrial fibrillation - Recurrent this am, despite amio load and BB. [id number] score of 4. Consider Eliquis. Acute expected blood loss anemia - Stable. No transfusions needed. VTE prophylaxis w SCDs and SQ hep. Acute on chronic pain - Home control with gabapentin, tramadol and diclofenac. Postop attempt at multimodal analgesia limited by nausea on narcotics. Best relief obtained with intermittent toradol and diclofenac restarted to facilitate cardiac rehab. Pulmonary fibrosis - Stable. No sig post-extubation suppl O2 requirement. Plan: Limited echo r/o pericardial effusion. Anticoagulation pending echo results. Inc Amio to 200 mg BID. IV bolus 150 mg prn RVR. Cont Metoprolol tartrate 25 mg BID. Dispo - Anticipate home without services tomorrow if rhythm stable. 10/09/18 07:35 Subjective: Diarrhea overnight. Unaware of palpitations. Hungry. Objective: Vital Signs Temp Pulse Resp BP Pulse Ox 36.6 C 131 H 20 105/68 98 10/09/18 07:15 10/09/18 07:15 10/09/18 07:15 10/09/18 07:15 10/09/18 07:15 Laboratory Results 10/08/18 03:55 10/09/18 05:35 10/08/18 10/09/18 10/10/18 05:59 05:59 05:59 Intake Total 450 1840 Output Total 300 1300 Balance 150 540 PT 13.5 SEC (12.0-15.0) 10/03/18 11:15 INR 1.01 (0.83-1.16) 10/03/18 11:15 Bowel regimen intensified yest resulting in diarrhea as of last pm. Episodes appear to be lessening. Back in AF 130s early this am. SBP borderline low. K ok. Almost off O2. Balanced I/Os. Within 1 kg admit wt. Physical Exam - Physical Exam General Appearance: alert, no apparent distress Respiratory: lungs clear Cardiac/Chest: tachycardia, irregularly irregular, other (Sternotomy CDI) Abdomen: non-tender, soft, other (hyperactive BS) Skin: warm/dry Extremities: other (bilat thigh venotomies CDI) ICD10 Worksheet Patient Problems: Problems Problem Status Onset Acute blood loss anemia Acute CAD (coronary artery disease) Acute Carotid artery disease Acute Dyslipidemia Acute Elevated left ventricular end-diastolic pressure (LVEDP) Acute Ischemic cardiomyopathy Acute Postoperative atrial fibrillation Acute S/P CABG x 3 Acute ~10/05/18 Chronic pain Chronic HTN (hypertension), benign Chronic Language barrier to communication Chronic Pulmonary fibrosis Chronic
[2018-10-09] MEDS: METOPROLOL TARTRATE 25 MG TAB PO SCH ×2 (07:48→20:37)
[2018-10-09] MEDS: DICLOFENAC SODIUM 50 MG TAB PO SCH ×2 (07:48→20:37)
[2018-10-09] MEDS: ATORVASTATIN CALCIUM 20 MG TAB PO SCH (07:48)
[2018-10-09] MEDS: GABAPENTIN 100 MG CAP PO SCH ×2 (07:49→20:37)
[2018-10-09] MEDS: PANTOPRAZOLE SODIUM 40 MG TAB PO SCH (07:49)
[2018-10-09] MEDS: AMIODARONE HCL 200 MG TAB PO SCH ×2 (07:49→20:37)
[2018-10-09] MEDS: ASPIRIN 81 MG CHEWABLE TAB PO SCH (07:49)
[2018-10-09] MEDS: SENNOSIDES/DOCUSATE SODIUM TAB PO SCH (07:52)
[2018-10-09] MEDS: traMADol 50 MG TAB PO PRN ×2 (08:23→14:38)
--- NOTE | 2018-10-09 10:31 | ECHO ---
[email or web address] [address] [address] Main: [phone] Fax: Transthoracic Echocardiogram Name: LYNN HENSON MR#: [id number] Study Date: 10/09/2018 Study Time: 08:28 AM Date of : 1935 Age: 83 year(s) Height: 165.1 cm (65 in.) Weight: 65.32 kg (144 lb.) BSA: 1.72 m2 Gender: Female Examination: Limited Echo Indication: PAF w pericardial friction rub, r/o effusion if anticoag needed, eval for pericardial effusion, ventricular fx Image Quality: Adequate Contrast: Requested by: Lynn Diaz BP: 98 mmHg/67 mmHg Heart Rate: Rhythm: Indication: PAF w pericardial friction rub, r/o effusion if anticoag needed, eval for pericardial effusion, ventricular fx Procedure Staff Painter Spray: Donna Weldon [facility] Reading Physician: Franky Pantoja MD Requesting Provider: Conclusions: Normal size left ventricle. Mildly reduced systolic LV function. The ejection fraction is estimated to be 40-45 %. There is paradoxic septal motion suggestive of bundle branch block, paced cardiac rhythm, or prior cardiac surgery. No pericardial effusion. No pleural effusion. Measurements: Chambers Valvular Assessment AV/MV Valvular Assessment TV/PV Normal Normal Normal Name Value Range Name Value Range Name Value Range LVEF (MOD4): 46 % (>=55 %) TR Vmax: 3.45 mm/s ( - ) EF Range: 40-45 % TR PGmax: 48 mmHg ( - ) Continued Measurements: Findings: Left Ventricle: Normal size left ventricle. Mildly reduced systolic LV function. The ejection fraction is estimated to be 40-45 %. There is paradoxic septal motion suggestive of bundle branch block, paced cardiac rhythm, or prior cardiac surgery. Right Ventricle: Normal size right ventricle. Mitral Valve: The mitral valve is normal in appearance. Aortic Valve: Patient: LYNN HENSON Study Date: 10/09/2018 Page 1 of 2 08:28 AM There is no aortic valve regurgitation. Tricuspid Valve: The tricuspid valve appears normal. Pericardium: No pericardial effusion. No pleural effusion. (No Signature Object) Patient: LYNN HENSON Study Date: 10/09/2018 Page 2 of 2 08:28 AM [id number]
[2018-10-09] MEDS: ACETAMINOPHEN 325 MG TAB PO PRN (13:17)
[2018-10-09] MEDS: ONDANSETRON 4 MG/2 ML VIAL IVP PRN (17:57)
[2018-10-09] MEDS: APIXABAN 2.5 MG TAB PO SCH (20:37)
[2018-10-10 07:28] VITALS: BP 135/66
--- NOTE | 2018-10-10 07:30 | SOAPPROG ---
SOAP Progress Note Assessment/Plan: Assessment: POD#5 CABG x 3 (PATEL-LAD, SV-D1, SV-PDA), EVH bilat thighs, prophylactic AtriClip ligation left atrial appendage Sx severe CAD - Nondominant LCX too small to graft. Surveillance per cards. Secondary prevention with ASA, BB and statin. ISCM - Preop LVEF 30-40%. Improved systolic fx post revascularization. Extubated in the OR. Hemodynamically stable early postop course without inotropic or pressor support. No sig volume overload. Early exam c/w pericarditis. Home NSAID resumed. No pericardial effusion noted by limited echo. Staggered intro of heart failure meds as tolerated. Postoperative paroxysmal atrial fibrillation - Recurrent yest am, despite amio load and BB. Maintenance amio dose inc. SR restored by late pm. Started on Eliquis for [id number] score of 4. Acute expected blood loss anemia - Stable. No transfusions needed. VTE prophylaxis w SCDs and Eliquis. Acute on chronic pain - Home control with gabapentin, tramadol and diclofenac. Postop attempt at multimodal analgesia limited by nausea on narcotics. Best relief obtained with intermittent toradol and diclofenac restarted to facilitate cardiac rehab. Pulmonary fibrosis - Stable. No sig post-extubation suppl O2 requirement. Plan: Cont Amio 200 mg BID. Cont Metoprolol tartrate 25 mg BID. Cont Eliquis 2.5 mg BID Dispo - Ok for home. Instructions re diet, meds, activity, wound care and f/u to be reviewed in presence of family. 10/10/18 07:29 Subjective: Ok. Bowels no longer loose. Objective: Vital Signs Temp Pulse Resp BP Pulse Ox 36.7 C 72 18 135/66 H 98 10/10/18 07:27 10/10/18 07:27 10/10/18 07:27 10/10/18 07:27 10/10/18 07:27 Laboratory Results 10/08/18 03:55 10/10/18 03:44 10/09/18 10/10/18 10/11/18 05:59 05:59 05:59 Intake Total 1840 990 Output Total 1300 300 Balance 540 690 PT 13.5 SEC (12.0-15.0) 10/03/18 11:15 INR 1.01 (0.83-1.16) 10/03/18 11:15 SR held overnoc. Uptrending SBPs. Borderline suppl O2 req, desatting with activity. Positive fluid balance. +1.5 kg overall. Physical Exam - Physical Exam General Appearance: alert, no apparent distress Respiratory: crackles (basilar o/w CTA) Cardiac/Chest: regular rate, rhythm, other (Sternum grossly stable. Sternotomy and CT sites CDI) Abdomen: non-tender, soft Skin: warm/dry Extremities: swelling (trace dependent), other (Bilat thigh venotomies CDI) ICD10 Worksheet Patient Problems: Problems Problem Status Onset Acute blood loss anemia Acute CAD (coronary artery disease) Acute Carotid artery disease Acute Dyslipidemia Acute Elevated left ventricular end-diastolic pressure (LVEDP) Acute Ischemic cardiomyopathy Acute Postoperative atrial fibrillation Acute S/P CABG x 3 Acute ~10/05/18 Chronic pain Chronic HTN (hypertension), benign Chronic Language barrier to communication Chronic Pulmonary fibrosis Chronic
[2018-10-10] MEDS ORDERED: FUROSEMIDE 20 MG TAB PO SCH (09:00)
[2018-10-10] MEDS: ATORVASTATIN CALCIUM 20 MG TAB PO SCH (09:57)
[2018-10-10] MEDS: METOPROLOL TARTRATE 25 MG TAB PO SCH (09:57)
[2018-10-10] MEDS: DICLOFENAC SODIUM 50 MG TAB PO SCH (09:57)
[2018-10-10] MEDS: APIXABAN 2.5 MG TAB PO SCH (09:57)
[2018-10-10] MEDS: GABAPENTIN 100 MG CAP PO SCH (09:58)
[2018-10-10] MEDS: ASPIRIN 81 MG CHEWABLE TAB PO SCH (09:58)
[2018-10-10] MEDS: PANTOPRAZOLE SODIUM 40 MG TAB PO SCH (09:58)
[2018-10-10] MEDS: AMIODARONE HCL 200 MG TAB PO SCH (09:58)
[2018-10-10] MEDS: traMADol 50 MG TAB PO PRN (10:14)
--- NOTE | 2018-10-10 10:49 | PDHOMEO2F ---
Home Oxygen Face to Face Home Orders: I certify that a physician or a nurse practitioner or physician's assistant production editor has had a [id number] encounter with this patient on the date of this order due to the diagnosis listed, which relates to the primary reason the patient requires home oxygen. Alternative treatments have been tried, or considered, and deemed ineffective. It is anticipated that supplemental oxygen will result in improvement with treatment. Home oxygen qualifying diagnosis: CAD Home oxygen secondary diagnosis: pulmonary fibrosis SpO2 on room air (%): 83 Frequency of home oxygen needed: continuous Home oxygen liters per minute: 1-2 Home oxygen delivery device: nasal cannula Concentrator: Yes E-tanks for mobility and back up: Yes If ordering portable O2, is the patient mobile in the home?: Yes I certify that, based on these findings, the home oxygen is medically necessary for this patient for the following length of time. Length of time home oxygen needed: 1 month (indeterminate, reassessments at cardiac rehab)
--- NOTE | 2018-10-10 11:05 | PDDCSUM ---
Discharge Summary Discharge Summary: DATE OF ADMISSION: 10/03/18 DATE OF DISCHARGE: 10/10/18 DISPOSITION: Home, self-care PRINCIPAL ADMISSION DIAGNOSES: 1. Unstable angina 2. Abnormal Lexiscan nuclear stress test PRINCIPAL DISCHARGE DIAGNOSES: 1. Severe multivessel coronary artery disease 2. Ischemic cardiomyopathy 3. Left ventricular diastolic dysfunction 4. Carotid atherosclerosis 5. Status post coronary artery bypass grafting x 3 6. Status post prophylactic exclusion of the left atrial appendage 7. Postoperative paroxysmal atrial fibrillation 8. Acute expected blood loss anemia HISTORY OF PRESENT ILLNESS: 83 yo hypertensive female with shortness of breath, exertional chest pains, EKG evidence of an old lateral wall DE, and a markedly abnormal nuclear stress test demonstrating an anteroseptal infarct with isa-infarct ischemia and a reduced LVEF of 46%, admitted for elective left heart catheterization. 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 Access right femoral artery. Findings: Right dominant circulation, 20% proximal left main stenosis, 80% proximal and 90% mid LAD stenosis, 90% proximal D1 stenosis, 70% proximal stenosis of small caliber LCX, 80% mid RCA stenosis, right to left collaterals to the LAD, severe global hypokinesis with LVEF 30%, LVEDP 24. 10/04 Carotid ultrasound: Bilateral carotid bulb plaquing without limitations to flow. 10/[address]: chronic interstitial lung disease 10/05 ([facility]ag[facility]): Coronary artery bypass grafting x 3 (PATEL-LAD, SV-D1, SV-PDA). Takedown left internal mammary artery. Endoscopic vein harvest bilateral thighs. Prophylactic AtriClip ligation of the left atrial appendage ABBREVIATED HOSPITAL COURSE BY ACTIVE PROBLEM LIST: 1. Sx severe CAD - Nondominant LCX too small to graft. Surveillance per cards. Secondary prevention with ASA, BB and statin. 2. ISCM - Preop LVEF 30-40%. Improved systolic fx post revascularization. Extubated in the OR. Hemodynamically stable early postop course without inotropic or pressor support. No sig volume overload. Early exam c/w pericarditis. Home NSAID resumed. No pericardial effusion noted by limited echo. Staggered intro of heart failure meds as tolerated. 3. Postoperative paroxysmal atrial fibrillation - Recurrent despite amio load and escalating dose of BB. Maintenance amio dose doubled with good effect. Switched from Toprol to Lopressor for ease of titration. Started on Eliquis for [id number] score of 4. 4. Acute expected blood loss anemia - Stable. No transfusions needed. 5. Acute on chronic pain - Home control with gabapentin, tramadol and diclofenac. Postop attempt at multimodal analgesia limited by nausea on narcotics. Best relief obtained with intermittent toradol and diclofenac restarted to facilitate cardiac rehab. 6. Pulmonary fibrosis - Stable. No sig post-extubation suppl O2 requirement. DISCHARGE CLINICAL INFORMATION: Sternum grossly stable. Sternotomy and bilat thigh venotomies CDI, sutured, + Dermabond. HR 60s-70s. SBP 130s. SpO2 83% RA ambulation correcting to > 91% on 2 lpm. Wt 1.5 kg above admission at 64.4 kilos. Hgb 10.9, HCT 34.2, Plt 104, Na 133, K 4.6, Cr 0.7 DISCHARGE MEDICATIONS: As on admission with the following adjustments: 1. Hold Toprol XL NEW prescriptions: 1. Metoprolol tartrate 25 mg BID 2. Amiodarone 200 mg BID thru 10/16, then 200 mg daily x 2 weeks 3. Eliquis 2.5 mg BID x 1 month 4. ASA 81 mg daily 5. Lipitor 20 mg daily 6. Lasix 20 mg daily until back to usual weight and no swelling 7. Nitrostat 0.4 mg as directed prn angina FOLLOW UP APPOINTMENTS: 1. CV surgery: with Dr Flores at [facility] on 10/16 at 9:30 am. 2. Cardiology: with Dr Pantoja at [facility] within 4 weeks. Appointment to be established during surgical visit. FOLLOW UP TESTING: CXR prior to surgical appointment.
[2018-10-10] MEDS: HYDROCODONE/APAP 5/325 TAB PO PRN (14:07)
== END 2018-10-10 16:26 | disposition home or self-care (01) | DRG 234 ==
LOC: FCATH 10:36 → F2W 17:13 → OBSVTOIN 17:39 → F2W 18:50 → F2N 10-05 11:24 → F2W 10-06 15:35
PROVIDERS: ADMIT Internal Medicine Cardiovascular Disease; ATTEND Thoracic Surgery (Cardiothoracic Vascular Surgery)
PROC: B2151ZZ Fluoroscopy of Left Heart using Low Osmolar Contrast (ICD-10-PCS; 2018-10-03)
PROC: B2111ZZ Fluoroscopy of Multiple Coronary Arteries using Low Osmolar Contrast (ICD-10-PCS; 2018-10-03)
PROC: 4A023N7 Measurement of Cardiac Sampling and Pressure, Left Heart, Percutaneous Approach (ICD-10-PCS; 2018-10-03)
PROC: 021109W Bypass Coronary Artery, Two Arteries from Aorta with Autologous Venous Tissue, Open Approach (ICD-10-PCS; principal; 2018-10-05 10:30)
PROC: 5A1221Z Performance of Cardiac Output, Continuous (ICD-10-PCS; principal; 2018-10-05 10:30)
PROC: 02100Z9 Bypass Coronary Artery, One Artery from Left Internal Mammary, Open Approach (ICD-10-PCS; principal; 2018-10-05 10:30)
PROC: 06BQ4ZZ Excision of Left Saphenous Vein, Percutaneous Endoscopic Approach (ICD-10-PCS; principal; 2018-10-05 10:30)
PROC: 02L70CK Occlusion of Left Atrial Appendage with Extraluminal Device, Open Approach (ICD-10-PCS; principal; 2018-10-05 10:30)
PROC: 06BP4ZZ Excision of Right Saphenous Vein, Percutaneous Endoscopic Approach (ICD-10-PCS; principal; 2018-10-05 10:30)
DX: I25.110 Atherosclerotic heart disease of native coronary artery with unstable angina pectoris (principal); D62 Acute posthemorrhagic anemia; I48.0 Paroxysmal atrial fibrillation; J84.10 Pulmonary fibrosis, unspecified; I10 Essential (primary) hypertension; G89.29 Other chronic pain; M51.36 Other intervertebral disc degeneration, lumbar region; I25.2 Old myocardial infarction
CPT/HCPCS: 82435-PO; 82565-PO; 82947-PO; 83605-ER; 84132-PO; 84295-PO; 84520-PO; 85014-ER; 92526-GN; 92610-GN; 97116-GP; 97162-GP; 97165-GO; 97530-GP; 97535-GO; J0153; J0282; J0360; J0690; J1265; J1644; J1815; J1885; J1940; J2001; J2150; J2250; J2260; J2270; J2370; J2405; J2440; J2704; J2720; J2930; J3010; J3475; J3480; P9041; Q9967

== ENCOUNTER → 2018-10-16 | Outpatient (CLI) | payer OTHER | LOC: FLAB 09:07 | PROVIDERS: ATTEND Thoracic Surgery (Cardiothoracic Vascular Surgery) | DX: I25.10 Atherosclerotic heart disease of native coronary artery without angina pectoris (principal); Z95.1 Presence of aortocoronary bypass graft ==

== ENCOUNTER → 2019-01-11 | Outpatient (CLI) | payer OTHER | LOC: FIMAGING 13:57 → FLAB 13:57 → EDSTATUS 13:58 | PROVIDERS: ATTEND Internal Medicine Cardiovascular Disease | DX: J84.9 Interstitial pulmonary disease, unspecified (principal); I25.10 Atherosclerotic heart disease of native coronary artery without angina pectoris ==